=== PATIENT | female | born 1995 | race Hispanic/Latino ===

== ENCOUNTER 2018-09-28 19:33 | Emergency (ER) | payer OTHER ==
[2018-09-28] MEDS ORDERED: ONDANSETRON 4 MG/2 ML VIAL ONE (20:35)
[2018-09-28] MEDS ORDERED: KETOROLAC 30 MG/ML INJ ONE (20:35)
[2018-09-28] MEDS ORDERED: FAMOTIDINE 20 MG/2 ML VIAL IV ONE (20:35)
[2018-09-28] MEDS ORDERED: NA CHLORIDE 0.9% 1,000 ML ONE (20:36)
[2018-09-28 21:02] LABS: Absolute Lymphocytes (CBC) 2.4 K/uL (0.7-4.9); Absolute Monocytes 0.5 K/uL (0.1-1.3); Absolute Neutrophil 6.5 K/uL (1.8-8.0); Basophils % 0.3 % (0-1.3); Eosinophils % 1.3 % (0-4.4); Hematocrit 33.8 % (36.0-45.0); Lymphocytes % 25.1 % (15.3-44.8); MPV 7.7 fL (7.6-11.3); Monocytes % 5.4 % (3.3-12.3); RBC Red Blood Cell Count 4.81 M/uL (3.86-4.86)
[2018-09-28 21:04] LABS: ALT/SGPT 29 U/L (12-78); AST/SGOT 33 U/L (15-37); Albumin 3.1 g/dL (3.4-5.0); Alkaline Phosphatase 147 U/L (45-117); BUN Blood Urea Nitrogen 10 mg/dL (7-18); Bicarbonate 26 mmol/L (21-32); Bilirubin Direct 0.1 mg/dL (0-0.2); Bilirubin Total 0.2 mg/dL (0.2-1.0); Glucose Level 112 mg/dL (74-106); Lipase 160 U/L (73-393); Potassium 3.8 mmol/L (3.5-5.1); Protein, Total 7.4 g/dL (6.4-8.2); Sodium Level 141 mmol/L (136-145)
--- NOTE | 2018-09-28 21:04 | RAD REPORT ---
EXAM DESCRIPTION: US - Abdomen Exam Limited - 09/28/2018 8:58 pm CLINICAL HISTORY: Abdominal pain. COMPARISON: None. FINDINGS: Multiple gallstones. Gallbladder wall not thickened. Common bile duct measures 7 millimeters IMPRESSION: Cholelithiasis Dilated common bile duct may indicate nonvisualized stone within the duct
[2018-09-28 21:24] LABS: Urine Blood NEGATIVE (NEG); Urine Glucose NEGATIVE (NEG); Urine Protein TRACE (NEG); Urine Specific Gravity 1.025 (1.005-1.030); Urine pH 6.5 (5.0-7.0)
--- NOTE | 2018-09-28 21:29 | ER ---
Nurse's Notes [facility] Name: Marija Valenzuela Age: 23 yrs Sex: Female : 1995 Arrival Date: 09/28/2018 Time: 19:34 Bed 16 Private MD: Diagnosis: Cholelithiasis Presentation: 09/28 19:37 Presenting complaint: Patient states: Epigastric pain since 0800 this morning, patient aj1 states that the pain got severe an hour ago. Reports that she had a baby 5 weeks ago. Reports N/V/D. Transition of care: patient was not received from another setting of care. Onset of symptoms was September 28, 2018 at 08:00. Risk Assessment: Do you want to hurt yourself or someone else? Patient reports no desire to harm self or others. Initial Sepsis Screen: Does the patient meet any 2 criteria? No. Patient's initial sepsis screen is negative. Does the patient have a suspected source of infection? Yes: Acute abdominal pain. Care prior to arrival: None. 19:37 Method Of Arrival: Ambulatory aj1 19:37 Acuity: MARTINEZ 3 aj1 Triage Assessment: 19:38 General: Appears in no apparent distress. uncomfortable, Behavior is cooperative, aj1 anxious, restless. Pain: Complains of pain in epigastric area Pain does not radiate. Pain currently is 10 out of 10 on a pain scale. Neuro: Level of Consciousness is awake, alert, obeys commands. Cardiovascular: Patient's skin is warm and dry. Respiratory: Airway is patent Respiratory effort is even, unlabored, Respiratory pattern is regular, symmetrical. GI: Reports upper abdominal pain. 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 - Social history:: Smoking status: Patient/guardian denies using tobacco. - Ebola Screening: : Patient denies travel to an Ebola-affected area in the 21 days before illness onset. Screenin:45 Abuse screen: Denies threats or abuse. Nutritional screening: No deficits noted. aj1 Tuberculosis screening: No symptoms or risk factors identified. Fall Risk None identified. Assessment: 19:45 General: Appears in no apparent distress. uncomfortable, Behavior is calm, cooperative, aj1 appropriate for age. Pain: Complains of pain in epigastric area Pain does not radiate. Pain currently is 10 out of 10 on a pain scale. Quality of pain is described as pressure, Pain began gradually, 1 hour ago. Is continuous. Neuro: Level of Consciousness is awake, alert, obeys commands, confused, Oriented to person, place, time, situation. Cardiovascular: Patient's skin is warm and dry. Respiratory: Airway is patent Respiratory effort is even, unlabored, Respiratory pattern is regular, symmetrical. GI: Bowel sounds present X 4 quads. Abd is soft X 4 quads Abd is non tender in right lower quadrant and left lower quadrant Abdomen is tender to palpation in epigastric area, right upper quadrant and left upper quadrant Reports upper abdominal pain, nausea, vomiting. : No signs and/or symptoms were reported regarding the genitourinary system. EENT: No signs and/or symptoms were reported regarding the EENT system. Derm: Skin is intact, Skin is pink, warm \T\ dry. Musculoskeletal: Circulation, motion, and sensation intact. 21:00 Reassessment: Patient appears in no apparent distress at this time. No changes from aj1 previously documented assessment. Patient and/or family updated on plan of care and expected duration. Pain level reassessed. Patient is alert, oriented x 3, equal unlabored respirations, skin warm/dry/pink. Vital Signs: 19:38 BP 123 / 73; Pulse 86; Resp 18; Temp 97.2; Pulse Ox 100% on R/A; Weight 85.73 kg (R); aj1 Height 4 ft. 11 in. (149.86 cm) (R); Pain 10/10; 20:52 BP 114 / 57; Pulse 67; Resp 16; Pulse Ox 100% on R/A; aj1 19:38 Body Mass Index 38.17 (85.73 kg, 149.86 cm) aj1 ED Course: 19:34 Patient arrived in ED. am2 19:38 Triage completed. aj1 19:38 Arm band placed on Patient placed in an exam room. aj1 19:39 Marycruz Larsen FNP-C [facility]. kb 19:39 Dharmesh Leonard MD is Attending Physician. kb 19:45 Chetna Crow, RN is Primary Nurse. aj1 19:45 Patient has correct armband on for positive identification. Bed in low position. Call aj1 light in reach. Side rails up X 1. Pulse ox on. NIBP on. 20:27 Initial lab(s) drawn, by me, sent to lab. Inserted saline lock: 20 gauge in left vd2 antecubital area, using aseptic technique. Blood collected. 20:58 US Abdomen Limited In Process Unspecified. EDMS 20:59 Ultrasound completed. Patient tolerated well. sg3 21:09 Primary Nurse role handed off by Chetna Crow RN jb4 21:09 Nathaniel Pena, RN is Primary Nurse. jb4 21:42 No provider procedures requiring assistance completed. IV discontinued, intact, jb4 bleeding controlled. Administered Medications: 20:45 Drug: NS 0.9% 1000 ml Route: IV; Rate: 1000 ml; Site: left antecubital; aj1 21:44 Follow up: Response: No adverse reaction; IV Status: Completed infusion; IV Intake: jb4 1000ml 20:50 Drug: Pepcid 20 mg Route: IVP; Site: left antecubital; aj1 21:44 Follow up: Response: No adverse reaction jb4 20:51 Drug: TORadol 30 mg Route: IVP; Site: left antecubital; aj1 21:44 Follow up: Response: No adverse reaction; Pain is decreased jb4 20:53 Drug: Zofran 4 mg Route: IVP; Site: left antecubital; aj1 21:43 Follow up: Response: No adverse reaction; Nausea is decreased jb4 Intake: 21:44 IV: 1000ml; Total: 1000ml. jb4 Outcome: 21:28 Discharge ordered by . kb 21:42 Discharged to home ambulatory. jb4 21:42 Condition: stable 21:42 Discharge instructions given to patient, family, Instructed on discharge instructions, follow up and referral plans. medication usage, Demonstrated understanding of instructions, follow-up care, medications, Prescriptions given X 1. 21:44 Patient left the ED. jb4 Signatures: Dispatcher [employer] EDWI Marycruz Larsen, SURGICAL MANAGER-C SURGICAL MANAGER-Ckb Chetna Crow RN RN aj1 [place] [id number] Nathainel Pena RN RN jb4 Dyana Brown am2 Cara Deras sg3
--- NOTE | 2018-09-28 21:29 | EDPHYS ---
Physician Documentation [facility] Name: Marija Valenzuela Age: 23 yrs Sex: Female : 1995 Arrival Date: 09/28/2018 Time: 19:34 Bed 16 Private MD: ED Physician Dharmesh Leonard HPI: 09/28 20:05 This 23 yrs old Female presents to ER via Ambulatory with complaints of kb Epigastric Pain. 20:05 The patient presents with abdominal pain in the epigastric area. Onset: The kb symptoms/episode began/occurred this morning. The symptoms do not radiate. Associated signs and symptoms: Pertinent positives: nausea, vomiting, and diarrhea. The symptoms are described as constant, sharp. Modifying factors: The symptoms are alleviated by nothing, the symptoms are aggravated by pressure. Severity of pain: At its worst the pain was moderate in the emergency department the pain is unchanged. The patient has not experienced similar symptoms in the past. The patient has not recently seen a physician. 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 - Social history:: Smoking status: Patient/guardian denies using tobacco. - Ebola Screening: : Patient denies travel to an Ebola-affected area in the 21 days before illness onset. ROS: 20:04 Constitutional: Negative for fever, chills, and weight loss, Cardiovascular: Negative kb for chest pain, palpitations, and edema, Respiratory: Negative for shortness of breath, cough, wheezing, and pleuritic chest pain, Back: Negative for injury and pain, : Negative for injury, bleeding, discharge, and swelling, MS/Extremity: Negative for injury and deformity, Skin: Negative for injury, rash, and discoloration, Neuro: Negative for headache, weakness, numbness, tingling, and seizure. 20:04 Abdomen/GI: Positive for abdominal pain, nausea, vomiting, and diarrhea. Exam: 20:04 Constitutional: This is a well developed, well nourished patient who is awake, alert, kb and in no acute distress. Head/Face: Normocephalic, atraumatic. Chest/axilla: Normal chest wall appearance and motion. Nontender with no deformity. No lesions are appreciated. Cardiovascular: Regular rate and rhythm with a normal S1 and S2. No gallops, murmurs, or rubs. Normal PMI, no JVD. No pulse deficits. Respiratory: Lungs have equal breath sounds bilaterally, clear to auscultation and percussion. No rales, rhonchi or wheezes noted. No increased work of breathing, no retractions or nasal flaring. Back: No spinal tenderness. No costovertebral tenderness. Full range of motion. Skin: Warm, dry with normal turgor. Normal color with no rashes, no lesions, and no evidence of cellulitis. MS/ Extremity: Pulses equal, no cyanosis. Neurovascular intact. Full, normal range of motion. Neuro: Awake and alert, GCS 15, oriented to person, place, time, and situation. Cranial nerves II-XII grossly intact. Motor strength 5/5 in all extremities. Sensory grossly intact. Cerebellar exam normal. Normal gait. 20:04 Abdomen/GI: Inspection: abdomen appears normal, Bowel sounds: normal, in all quadrants, Palpation: soft, in all quadrants, mild abdominal tenderness, in the right upper quadrant, moderate abdominal tenderness, in the epigastric area. Vital Signs: 19:38 BP 123 / 73; Pulse 86; Resp 18; Temp 97.2; Pulse Ox 100% on R/A; Weight 85.73 kg (R); aj1 Height 4 ft. 11 in. (149.86 cm) (R); Pain 10/10; 20:52 BP 114 / 57; Pulse 67; Resp 16; Pulse Ox 100% on R/A; aj1 19:38 Body Mass Index 38.17 (85.73 kg, 149.86 cm) aj1 MDM: 19:44 Patient medically screened. kb 20:04 Data reviewed: vital signs, nurses notes. Data interpreted: Pulse oximetry: on room air kb is 100 %. Interpretation: normal. 21:18 Counseling: I had a detailed discussion with the patient and/or guardian regarding: the kb historical points, exam findings, and any diagnostic results supporting the discharge/admit diagnosis, lab results, radiology results, the need for outpatient follow up, a general surgeon, to return to the emergency department if symptoms worsen or persist or if there are any questions or concerns that arise at home. 21:28 ED course: Pt reports she is from [facility] and would like to have the surgery there. Is kb going home tomorrow. . 09/28 20:07 Order name: Basic Metabolic Panel; Complete Time: 21:09 kb 09/28 20:07 Order name: CBC with Diff; Complete Time: 21:13 kb 09/28 20:07 Order name: Hepatic Function; Complete Time: 21:09 kb 09/28 20:07 Order name: Lipase; Complete Time: 21:09 kb 09/28 20:49 Order name: Urine Dipstick--Ancillary (enter results); Complete Time: 21:28 mt 09/28 20:49 Order name: Urine --Ancillary (enter results); Complete Time: 21:28 mt 09/28 20:07 Order name: IV Saline Lock; Complete Time: 20:27 kb 09/28 20:07 Order name: Labs collected and sent; Complete Time: 20:27 kb 09/28 20:07 Order name: US Abdomen Limited; Complete Time: 21:09 kb Administered Medications: 20:45 Drug: NS 0.9% 1000 ml Route: IV; Rate: 1000 ml; Site: left antecubital; aj1 21:44 Follow up: Response: No adverse reaction; IV Status: Completed infusion; IV Intake: jb4 1000ml 20:50 Drug: Pepcid 20 mg Route: IVP; Site: left antecubital; aj1 21:44 Follow up: Response: No adverse reaction jb4 20:51 Drug: TORadol 30 mg Route: IVP; Site: left antecubital; aj1 21:44 Follow up: Response: No adverse reaction; Pain is decreased jb4 20:53 Drug: Zofran 4 mg Route: IVP; Site: left antecubital; aj1 21:43 Follow up: Response: No adverse reaction; Nausea is decreased jb4 Disposition: 09/28/18 21:28 Discharged to Home. Impression: Cholelithiasis. - Condition is Stable. - Discharge Instructions: Cholelithiasis, [id number]. - Prescriptions for cefdinir 300 mg Oral capsule - take 1 capsule by ORAL route every 12 hours for 7 days; 14 capsule. Zofran 4 mg Oral Tablet - take 1 tablet by ORAL route every 6 hours As needed; 20 tablet. Tramadol 50 mg Oral Tablet - take 1 tablet by ORAL route every 8 hours as needed; 12 tablet. - Medication Reconciliation Form, Thank You Letter, Antibiotic Education, Prescription Opioid Use form. - Family Work Release (09/29/18 06:54). mt - Follow up: Emergency Department; When: As needed; Reason: Worsening of condition. Follow up: Private Physician; When: 2 - 3 days; Reason: Recheck today's complaints, Continuance of care, Re-evaluation by your physician. Addendum: 10/01/2018 06:47 Co-signature as Attending Physician, Dharmesh Leonard MD I agree with the assessment and k dr plan of care. Signatures: Dispatcher [employer] EDMS Marycruz Larsen, MIRIAM-Shelbie ARAMBULAP-Chetna Ortega, RN RN aj1 Dharmesh Leonard MD MD kdr Nathaniel Pena RN RN jb4 Susi Ricks co Corrections: (The following items were deleted from the chart) 09/28 20:08 20:04 Abdomen/GI: Positive for abdominal pain, Negative for nausea, vomiting, and kb diarrhea, kb 20:08 20:05 Associated signs and symptoms: none. kb kb 21:44 21:28 09/28/2018 21:28 Discharged to Home. Impression: Cholelithiasis. Condition is jb4 Stable. Discharge Instructions: Cholelithiasis, [id number]. Prescriptions for cefdinir 300 mg Oral capsule - take 1 capsule by ORAL route every 12 hours for 7 days; 14 capsule, Zofran 4 mg Oral Tablet - take 1 tablet by ORAL route every 6 hours As needed; 20 tablet, Tramadol 50 mg Oral Tablet - take 1 tablet by ORAL route every 8 hours as needed; 12 tablet. and Forms are Medication Reconciliation Form, Thank You Letter, Antibiotic Education, Prescription Opioid Use. Follow up: Emergency Department; When: As needed; Reason: Worsening of condition. Follow up: Private Physician; When: 2 - 3 days; Reason: Recheck today's complaints, Continuance of care, Re-evaluation by your physician. kb
== END 2018-09-28 21:44 | disposition home or self-care (01) ==
LOC: ER 19:33
DX: K80.20 Calculus of gallbladder without cholecystitis without obstruction (principal)
CPT/HCPCS: 36415; 76705; 80048; 80076; 81003; 81025; 83690; 85025; 96361; 96374; 96375; 99284; J2405; J7030